=== PATIENT | female | born 1960 ===

== ENCOUNTER → 2018-09-15 15:12 | Outpatient (REF) | payer OTHER, SELFPAY ==
[2018-09-15 15:54] LABS: Cholesterol 199 mg/dL (140-199); HDL Cholesterol 65 mg/dL (40-60); LDL Cholesterol Calculated 114 mg/dL (<100); Triglycerides 100 mg/dL (35-150)
== END ==
LOC: LAB 15:12
PROVIDERS: Visit Provider Specialist
DX: I10 Essential (primary) hypertension (principal); Z00.00 Encounter for general adult medical examination without abnormal findings
CPT/HCPCS: 80061